=== PATIENT | male | born 1955 | race Caucasian/White ===

== ENCOUNTER 2018-12-31 02:39 | Inpatient (IN) | payer OTHER ==
[~2018-12-31] VITALS: Ht 188 cm; Wt 72.6 kg
[2018-12-31 03:11] VITALS: Ht 188 cm; Wt 72.6 kg
--- NOTE | 2018-12-31 03:30 | NUR ---
PT. BIB AMBULANCE FOR DIFFICULITY URINATING AND CLOUDY URINE [id number]. ALSO REPORT HE HAS HAD 6 EPISODES OF BROWN EMESIS TODAY. PER MEDICS BS WAS 550. PT. REPORTS HE HAS BEEN OUT OF INSULIN FOR 6MONTHS AND HAS NOT BEEN TO SEE HIS PCP. PT. AAOX4, TALKING AND RESPONDING APPROPRIATLEY, BREATHING E/U. PLACED ON FULL BEN DAY ARTIST. DR. MALONEY AT [facility] FOR MSE.
[2018-12-31 04:12] LABS: BASOPHIL % 0 % (0-2); PLATELET COUNT 299 x10^3mcL (130-400)
[2018-12-31 04:24] LABS: BILIRUBIN TOTAL 0.37 mg/dL (0.20-1.00); CALCIUM 9.3 mg/dL (8.5-10.1); CARBON DIOXIDE 27.8 mmol/L (21-32); CREATININE SERUM 2.2 mg/dL (0.7-1.3); MAGNESIUM 2.8 mg/dL (1.8-2.4); PHOSPHOROUS 4.7 mg/dL (2.5-4.9); POTASSIUM SERUM 4.4 mmol/L (3.5-5.1); TOTAL PROTEIN, SERUM 8.2 g/dL (6.4-8.2)
[2018-12-31 04:31] LABS: ALBUMIN 2.7 g/dL (3.4-5.0)
--- NOTE | 2018-12-31 04:45 | NUR ---
PT. LAYING ON GURNEY IN POSITION OF COMFORT. AAOX4, TALKING AND RESPONDING APPROPRIATELY, BREATHING E/U. REPORTS PAIN / TO BILATERL LOWER EXTRIMITIES. CALL LIGHT IN REACH, WILL CONTINUE TO MONITOR.
--- NOTE | 2018-12-31 05:00 | NUR ---
PT. DAUGHTER AT BEDSIDE STATES PATIENT HAS NOT TAKEN HIS INSULIN IN 6MONTHS BECAUSE HE DOES NOT WANT TO. REPORTS HE LIVE WITH HER AND REFUSES TO COMPLY WITH HIS MEDS.
--- NOTE | 2018-12-31 06:55 | NUR ---
PT. LAYING ON GURNEY IN POSITION OF COMFORT. REPORTS PAIN IN LEGS IS NOW A 3/10 AFTER MORPHINE. AAOX4, TALKING AND RESPONDING APPROPRIATLEY, BREATHING E/U. NAD CALL LIGHT IN REACH.
--- NOTE | 2018-12-31 07:11 | NUR ---
RCVD REPORT FROM IRENE OKEEFE, AT BEDSIDE PT IS AAOX4, RESPS E/U, PT ON FULL CM. PT CALM AND COOPERATIVE.
--- NOTE | 2018-12-31 07:12 | NUR ---
REPORT GIVEN TO MARNIE BONILLA TO ASSUME CARE OF PATIENT, ALL QUESTIONS ANSWERED.
[2018-12-31 07:32] LABS: UA SPECIFIC GRAVITY >=1.030 (1.005-1.035); microscopic required? YES; urine erythrocyte 3+ (NEGATIVE)
--- NOTE | 2018-12-31 07:49 | NUR ---
PROVIDED IRENE CASTLE FROM TELE UNIT REPORT TO ASSUME CARE.
[2018-12-31 09:28] VITALS: BP 180/95
--- NOTE | 2018-12-31 10:00 | NUR ---
RECIEVED PT FROM ED. PT IS AWAKE, ALERT, AND ORIENTED. HAS NO COMPLAINT OF PAIN, SOB, OR DIZZINESS. RESPONDS WELL TO QUESTION AND ANSWER. CLEAR RAMON LUNG FIELD, SYMMETRICAL CHEST EXPANSION AND UNLABORED. ACTIVE BOWEL SOUNDS NOTED. NON DISTENDED ABDOMEN. SKIN INTACT. GENERALIZED WEAKNESS. PRN PAIN MED TO BE GIVEN FOR COMPLAINT OF PAIN ON THE BLE. PT HAS A HISTORY OF LBKA 3 YEARS AGO DUE TO COMPLICATIONS FROM DIABETES PT STATED. DR. DIMAS TO BE MADE AWARE OF PT'S BP OF 180/95. WILL CONTINUE TO MONITOR
[2018-12-31 10:25] VITALS: BP 144/81
--- NOTE | 2018-12-31 10:54 | NUR ---
HYDRALAZINE NOT GIVEN. RECHECK PT'S BP SHOWED 144/81. WILL CONTINUE TO MONITOR
[2018-12-31 12:15] VITALS: BP 148/75
--- NOTE | 2018-12-31 13:00 | NUR ---
PT'S ACCUCHECK SHOWED 374. REG INSULIN GIVEN COVERAGE. AND LEVEMIR INSULIN GIVEN. WILL CONTINUE TO MONITOR
--- NOTE | 2018-12-31 14:05 | NUR ---
PT ON BED, ASLEEP. WILL CONTINUE TO MONITOR
[2018-12-31 16:35] VITALS: BP 161/87
[2018-12-31 16:41] LABS: AMPHETAMINE QUAL UR NONE DETECTED (See below)
--- NOTE | 2018-12-31 17:00 | NUR ---
PT'S ACCUCHECK SHOWED 337. 12 UNITS OF REGULAR INSULIN GIVEN COVERAGE. WILL CONTINUE TO MONITOR
--- NOTE | 2018-12-31 18:09 | NUR ---
PRN PAIN MED GIVEN NEEDED. WILL CONTINUE TO MONITOR
--- NOTE | 2018-12-31 19:10 | NUR ---
REC'D PT FROM DAY NURSE. PT RESTING IN BED. AAOX4, SPEECH CLEAR, FOLLOWS COMMANDS. TELE 12. DENIES CP, DIZZINESS, OR PALPITATIONS. NO EDEMA NOTED. DENIES RESP DISTRESS OR SOB. BREATHING EVEN/UNLABORED ON RA. ABD SOFT/ROUND. DENIES ABD PAIN, TENDERNESS, OR N/V. GALLAGHER IN PLACE DRAINING YELLOW URINE TO GRAVITY. GEN WEAKNESS WITH L BKA. USES WC. REPOSITIONS FREQUENTLY IN BED. PT REPORTS PAIN TO BLE BUT RECEIVED MORPHINE FROM DAY NURSE. SKIN INTACT. IV TO RFA PATENT AND INFUSING, SITE WNL. CALL LIGHT WITHIN REACH, BED AT LOWEST POSITION. WILL CONTINUE TO MONITOR.
--- NOTE | 2018-12-31 20:55 | NUR ---
DR. CAMACHO MADE AWARE UA SHOWED SOME YEAST.
[2018-12-31 21:09] VITALS: BP 155/91
--- NOTE | 2019-01-01 01:56 | NUR ---
PT RESTING IN BED WITH EYES CLOSED. APPEARS TO BE SLEEPING. LAYING ON L SIDE. NO SIGNS OF DISTRESS NOTED. BREATHING EVEN/UNLABORED ON RA. CALL LIGHT WITHIN REACH, BED AT LOWEST POSITION. WILL CONTINUE TO MONITOR.
--- NOTE | 2019-01-01 04:56 | NUR ---
SPOKE TO DR. CAMACHO. MADE AWARE OF ELEVATED BP WITH HX HTN BUT PT DOES NOT TAKE MEDS. RESIDENT ALSO MADE AWARE OF ELEVATED BUN/CR, COMPLAINTS OF BLE PAIN (GABAPENTIN?), SMALL L PLEURAL EFFUSION FROM CXR WITH IVF INFUSING @ 150 ML/HR D/T DMOOC (CHECK BNP?), WELL URINE IN BLOOD (US RENAL?). STATED WILL WAIT FOR AM LABS FIRST BUT WILL ORDER BP MED.
[2019-01-01 06:01] VITALS: BP 160/81
[2019-01-01 06:15] LABS: BASOPHIL % 0.3 % (0-2); PLATELET COUNT 284 x10^3mcL (130-400); RED CELL DISTRIBUTION WIDTH 12.8 % (11.5-14.5)
[2019-01-01 06:25] LABS: CALCIUM 8.2 mg/dL (8.5-10.1); CARBON DIOXIDE 26.4 mmol/L (21-32); CHLORIDE SERUM 115 mmol/L (98-107); CREATININE SERUM 1.2 mg/dL (0.7-1.3); GFR1 > 60 mL/min; GLUCOSE SERUM 75 mg/dL (74-106); MAGNESIUM 2.4 mg/dL (1.8-2.4); PHOSPHOROUS 2.8 mg/dL (2.5-4.9); POTASSIUM SERUM 3.9 mmol/L (3.5-5.1); SODIUM SERUM 150 mmol/L (136-145)
--- NOTE | 2019-01-01 06:30 | NUR ---
PT AWAKE AND C/O N/V. SMALL "THICK WHITE" EMESIS PER PT. ALSO C/O BLE PAIN 06/10. WILL GIVE MORPHINE. BREATHING EVEN/UNLABORED ON RA. BS 80 THIS AM. CALL LIGHT WITHIN REACH, BED AT LOWEST POSITION. WILL ENDORSE TO DAY NURSE.
--- NOTE | 2019-01-01 08:28 | NUR ---
AAO TIMES 4. TELE # 12 SR. LUNGS CTA. NO SOB. O2 SAT ON RA 100%. BS'S ACTIVE TIMES 4. MARTINEZ. LEFT BKA WITH STUMP SKIN CDI. SKIN CDI. IV SITE CDI. NO C/O PAIN AT THIS TIME. COOPERATIVE.
[2019-01-01 09:32] VITALS: BP 181/98
--- NOTE | 2019-01-01 09:44 | NUR ---
C/O NAUSEA. GAVE ZOFRAN 4 MG IVP AT 0856. DENIES NAUSEA AT THIS TIME.
[2019-01-01 13:11] VITALS: BP 159/92
--- NOTE | 2019-01-01 16:18 | NUR ---
DR DIMAS AWARE THAT HE HAD A 6 SECOND RUN OF TRIGEMINY, HE SAYS HE IS ORDERING AN EKG.
[2019-01-01 18:13] VITALS: BP 153/86
--- NOTE | 2019-01-01 18:18 | NUR ---
AAO TIMES 4. TELE # 12 SR. SLEPT MOST OF DAY. COOPERATIVE. C/O LEFT BKA PAIN AND REQUESTED MORPHINE, IT WAS GIVEN AT 1722. AT THIS TIME HE DENIES DISCOMFORT. IV SITE CDI. NO SOB.
--- NOTE | 2019-01-01 19:10 | NUR ---
REC'D PT FROM DAY NURSE. PT RESTING IN BED. AAOX4, SPEECH CLEAR, FOLLOWS COMMANDS. TELE 12. DENIES CP, DIZZINESS, OR PALPITATIONS. NO EDEMA NOTED. DENIES RESP DISTRESS OR SOB. BREATHING EVEN/UNLABORED ON RA. NO COUGH NOTED. ABD SOFT/ROUND. DENIES ABD PAIN, TENDERNESS, OR N/V. GALLAGHER IN PLACE DRAINING YELLOW URINE TO GRAVITY. GEN WEAKNESS. L BKA. C/O OF SOME BLE PAIN BUT TOLERABLE AT THIS TIME. USES WC AT HOME. SKIN INTACT. IV TO RFA PATENT AND INFUSING, SITE WNL. CALL LIGHT WITHIN REACH, BED AT LOWEST POSITION. WILL CONTINUE TO MONITOR.
--- NOTE | 2019-01-01 20:00 | NUR ---
POSSIBLE GALLAGHER D/C TOMORROW. BLADDER TRAINING PROCESS EXPLAINED TO PT, VERBALIZED UNDERSTANDING. GALLAGHER CLAMPED.
[2019-01-01 21:39] VITALS: BP 132/76
--- NOTE | 2019-01-01 21:57 | NUR ---
PT C/O NAUSEA AND BLADDER FULLNESS TO THE POINT OF "DISCOMFORT." ZOFRAN GIVEN PER ORDER. GALLAGHER UNCLAMPED. WILL CONTINUE TO MONITOR.
--- NOTE | 2019-01-01 22:30 | NUR ---
GALLAGHER RECLAMPED FOR BLADDER TRAINING. PT APPEARS TO BE SLEEPING. BREATHING EVEN/UNLABORED ON RA. CALL LIGHT WITHIN REACH, BED AT LOWEST POSITION. WILL CONTINUE TO MONITOR.
--- NOTE | 2019-01-02 00:30 | NUR ---
PT AWAKE AND RESTING IN BED. REPORTS HIS BLADDER FEELS FULL. STATES HE IS "UNCOMFORTABLE." GALLAGHER UNCLAMED AND DRAINING TO GRAVITY.
--- NOTE | 2019-01-02 02:16 | NUR ---
PT RESTING IN BED WITH EYES CLOSED. NO SIGNS OF DISTRESS NOTED. BREATHING EVEN/UNLABORED ON RA. CALL LIGHT WITHIN REACH, BED AT LOWEST POSITION. WILL CONITNUE TO MONITOR.
--- NOTE | 2019-01-02 02:48 | NUR ---
PT C/O BLE PAIN. NORCO GIVEN PER ORDER. WILL MONITOR FOR RELIEF.
--- NOTE | 2019-01-02 04:05 | NUR ---
PT AWAKE AND ON HIS CELL PHONE. REPORTS BLADDER FULLNESS. GALLAGHER UNCLAMPED FOR BLADDER TRAINING.
[2019-01-02 06:13] VITALS: BP 147/86
[2019-01-02 06:30] LABS: BASOPHIL % 0.2 % (0-2); PLATELET COUNT 261 x10^3mcL (130-400); RED CELL DISTRIBUTION WIDTH 13.1 % (11.5-14.5)
--- NOTE | 2019-01-02 06:30 | NUR ---
PT RESTING IN BED. DR. BROWNE AT THE BEDSIDE. BREATHING EVEN/UNLABORED ON RA. NO COMPLAINTS AT THIS TIME. GALLAGHER OPENED AND DRAINED TO GRAVITY. PERICARE PROVIDED. GALLAGHER D/C'D, TOLERATED WELL. CALL LIGHT WITHIN REACH, BED AT LOWEST POSITION. WILL ENDORSE TO DAY NURSE.
[2019-01-02 06:45] LABS: CALCIUM 8.2 mg/dL (8.5-10.1); CARBON DIOXIDE 27.7 mmol/L (21-32); CHLORIDE SERUM 114 mmol/L (98-107); CREATININE SERUM 1.1 mg/dL (0.7-1.3); GFR1 > 60 mL/min; GLUCOSE SERUM 137 mg/dL (74-106); MAGNESIUM 2.1 mg/dL (1.8-2.4); PHOSPHOROUS 3.2 mg/dL (2.5-4.9); POTASSIUM SERUM 4.4 mmol/L (3.5-5.1); SODIUM SERUM 148 mmol/L (136-145)
--- NOTE | 2019-01-02 07:30 | NUR ---
RECEIVED PT IN BED A/A/OX4 DENIES BERNARDO. RESP EVEN AND UNLABORED WITH DIMINISHED BS BILAT. DENIES ANY SOB/CP/PRESSURE AT THIS TIME. NSR ON TELE HR IN 90S. ABD SOFT, NONTENDER WITH ACTIVE BS X4 DENIES ANY N/V. PT HAD F/C D/C'D THIS AM AT 0630, AWAITING FIRST VOID. GEN WEAKNESS WITH HX OF LBKA, USES WC AT HOME. CALL LIGHT IN REACH NEEDS ATTENDED TO.
--- NOTE | 2019-01-02 08:59 | NUR ---
PT C/O NAUSEA MEDICATED WITH ZOFRAN, WILL ATTEMP PO MEDS AT A LATER TIME.
--- NOTE | 2019-01-02 09:34 | NUR ---
AM MEDS GIVEN AT THIS TIME, AND TOLERATED WELL.
[2019-01-02 09:35] VITALS: BP 155/87
[2019-01-02 12:40] VITALS: BP 147/84
--- NOTE | 2019-01-02 14:35 | NUR ---
PT HAD A SMALL VOID OF ABOUT 250ML AT THIS TIME. DR. TORRES MADE AWARE. NO FURTHER ORDERS AT THIS TIME.
[2019-01-02 16:45] VITALS: BP 145/85
--- NOTE | 2019-01-02 18:33 | NUR ---
P.T. NOTES RECEIVED P.T. EVAL ORDER; Pt DECLINED W/ P.T., STATES HE JUST GOT COMFORTABLE FROM THE PAIN, WAS GIVEN MORPHINE & WOULD LIKE TO SLEEP, EXPLAINED RISKS OF BEDBOUND, Pt STILL DECLINED, APPRECIATIVE; EDUC ON USE OF CALL LT FOR NURSE ASST, BED ALARM ON, CALL BARTH, PHONE, TABLE IN REACH; FOLLOW UP TOMORROW IF ABLE.
--- NOTE | 2019-01-02 20:00 | NUR ---
RECEIVED PT IN BED, ALERT AND ORIENTED. ABLE TO VERBALIZE NEEDS. DENIES HEADACHE/DIZZINESS. RESP. EVEN AND UNLABORED. ON ROOM AIR, NO ACUTE DISTRESS NOTED. SR/ST ON THE MONITOR, DENIES CHEST PAIN OR ANY DISCOMFORT AT THIS TIME. AFEBRILE AND VITAL SIGNS STABLE. VOIDING FREELY VIA URINAL. IVF, NS AT 40ML/HR, INTACT AND INFUSING VIA RFA, SITE CLEAR. WITH LT BKA, ABLE TO REPOSITION SELF IN BED. ASSISTED WITH HS CARE. CALL LIGHT WITHIN REACH. WILL CONTINUE TO MONITOR.
[2019-01-02 20:26] VITALS: BP 142/81
--- NOTE | 2019-01-03 02:03 | NUR ---
EYES CLOSED, APPEARS ASLEEP, EASILY AROUSABLE. RESP. EVEN AND UNLABORED. NO ACUTE DISTRESS NOTED. WILL CONTINUE TO MONITOR.
--- NOTE | 2019-01-03 02:36 | NUR ---
COMPLAINED OF RT LEG PAIN, 04/10, MEDICATED WITH NORCO PO ORDERED, . WILL CONTINUE TO MONITOR.
[2019-01-03 05:11] VITALS: BP 139/80
--- NOTE | 2019-01-03 06:22 | NUR ---
SLEPT WELL. NO COMPLAINTS NOTED AT THIS TIME. RESP. EVEN AND UNLABORED, NO ACUTE DISTRESS NOTED. AFEBRILE AND VITAL SIGNS STABLE. IVF INTACT AND INFUSING WELL, SITE CLEAR. DUE MEDS GIVEN ORDERED, ERVIN. WELL. VOIDING FREELY. DENIES PAIN OR ANY DISCOMFORT AT THIS TIME. NO S/S OF HYPER/HYPOGLYCEMIA NOTED. WILL ENDORSE TO INCOMING NURSE.
--- NOTE | 2019-01-03 07:30 | NUR ---
RECEIVED PT IN BED A/A/OX4 DENIES BERNARDO. RESP EVEN AND UNLABORED WITH CLEAR BS BILAT. DENIES ANY SOB/CP/PRESSURE AT THIS TIME. NSR WITH BBB ON TELE. NO EDEMA NOTED WITH IVF TO RFA. ABD SOFT, NONTENDER WITH ACTIVE BS X4. REPORTS MILD CONSTIPATION WITH LBM 3/1 DULCOLAX PO GIVEN LAST NIGHT. VOIDING FREELY USES URINAL. HX LT BKA, ABLE TO REPOSITION SELF IN BED. TO WORK WITH PT. CALL LIGHT IN REACH NEEDS ATTENDED TO.
[2019-01-03 08:03] VITALS: BP 149/86
--- NOTE | 2019-01-03 08:30 | NUR ---
AM MEDS TO BE GIVEN BY MT. GEIGER STUDENT UNDER SUPERVISION OF THEIR INSTRUCTOR WITH PT VERBAL APPROVAL.
--- NOTE | 2019-01-03 11:10 | NUR ---
LEADITE WORKER LESLIE CALLED TO DISCUSS ATB TX. PT'S SENSATIVITY REPORT ON [facility] SHOWS INTERMIDIATE RESPONSE TO CURRENT ATB ROCEPHIN. LEADITE WORKER STATED SHE WILL REVIEW MIGUELINA REPORT AND MAKE APPROPRIATE CHANGES. AWAITING NEW ORDERS.
--- NOTE | 2019-01-03 11:10 | NUR ---
NO MUTUC CALLED TO DISCUSS ATB TX. PT'S SENSATIVITY REPORT ON U[facility] SHOWS INTERMIDIATE RESPONSE TO CURRENT ATB ROCEPHIN. BASEBALL WINDER STATED SHE WILL SPEAK EVALUATE MIGUELINA REPORT.
[2019-01-03 12:13] VITALS: BP 140/82
--- NOTE | 2019-01-03 13:20 | NUR ---
NOTED REDNESS ABOVE IV SITE, NO LEAKING, PAIN OR SWELLING NOTED. NEW IV INSERTED TO RW 22G. D/C OLD IV. PT TOLERATED WELL.
--- NOTE | 2019-01-03 14:40 | NUR ---
PT BACK FROM [employer] COMPLET[facility].
--- NOTE | 2019-01-03 15:00 | NUR ---
PT C/O PAIN TO RT LEG AT 8, MEDICATED WITH MORPHINE 2MG IVP. PT C/O CONSTIPATION. PUBLICATION EDITOR CALLED AND OBTAINED ORDER FOR ENEMA. MTLINA STUDENT WITH INSTRUCTOR TO ADMINISTER ENEMA. PT MADE AWARE AND AGREABLE. CONT TO MONITOR.
--- NOTE | 2019-01-03 15:21 | NUR ---
PATIENT REFUSED PHYSICAL THERAPY EVAL AT THIS TIME, WILL ATTEMPT AGAIN TOMORROW
[2019-01-03 16:21] VITALS: BP 148/63
--- NOTE | 2019-01-03 18:01 | NUR ---
PT RESTING COMFORTABLY AT THIS TIME. CONT WITH IVF TO RW. PT HAD ENEMA WITH GOOD RELIEF 2BM. DENIES PAIN/DISCOMFORT. CALL LIGHT IN REACH NEEDS ATTENDED TO.
--- NOTE | 2019-01-03 20:05 | NUR ---
PT CURRENTLY RESTING IN BED, NO ACUTE DISTRESS. A/O X4. TELE #12 SHOWING SINUS RHYTHM, DENIES CHEST PAIN. PULSES PALPABLE IN BUE AND RLE, NO EDEMA NOTED. LUNG SOUNDS DIMINISHED BILATERALLY, DENIES SOB. BOWEL SOUNDS ACTIVE, LAST BM 01/03/19. VOIDING WELL. GENERALIZED WEAKNESS, ABLE TO REPOSITION SELF. LEFT BKA NOTED. SKIN INTACT. C/O CONSTANT RLE PAIN 8/10, MEDICATED PER EMAR. IV PATENT AND INTACT. BED IN LOWEST POSITION, SIDE RAILS UP X2, CALL LIGHT WITHIN REACH. WILL CONTINUE TO MONITOR.
[2019-01-03 21:46] VITALS: BP 129/76
--- NOTE | 2019-01-04 01:02 | NUR ---
PT CURRENTLY RESTING IN BED, NO ACUTE DISTRESS. WILL CONTINUE TO MONITOR.
[2019-01-04 06:05] VITALS: BP 133/77
--- NOTE | 2019-01-04 06:08 | NUR ---
PT SLEPT PERIODICALLY THROUGHOUT NIGHT, NO ACUTE DISTRESS. ALL NEEDS MET AND ATTENDED TO. NO SIGNIFICANT CHANGES. IV PATENT AND INTACT. MEDICATED PAIN PER EMAR. BED IN LOWEST POSITION, SIDE RAILS UP X2, CALL LIGHT WITHIN REACH. WILL ENDORSE CARE TO ONCOMING NURSE.
[2019-01-04 08:00] VITALS: BP 127/70
--- NOTE | 2019-01-04 08:04 | NUR ---
AAO TIMES 4. TELE # 12 SR. LUNGS CTA, NO SOB. O2 SAT ON RA 96%. BS'S ACTIVE TIMES 4. MARTINEZ WITH LEFT BKA, STUMP CDI. IV SITE CDI. PERIPHERAL PULSES PALPABLE, LEFT BKA. C/O A SMALL AMOUNT OF PAIN BLE. NO SOB.
[2019-01-04 09:10] LABS: PLATELET COUNT 256 x10^3mcL (130-400); RED CELL DISTRIBUTION WIDTH 13.1 % (11.5-14.5); SEGMENTED NEUTROPHILS 74.9 % (37-75)
[2019-01-04 09:11] LABS: ATYPICAL LYMPH 0 %; BAND NEUTROPHIL 0 % (0-10); BASOPHIL 0.2 % (0-2); MONOCYTE 8.1 % (0-7)
[2019-01-04 09:12] LABS: PLATELET MORPHOLOGY N; rbc morphology (normal/abnorm) NORMAL (NORMAL)
[2019-01-04] MEDS ORDERED: LEVAQUIN750 MG PO (10:15)
[2019-01-04] MEDS ORDERED: METFORMIN500 M1 PO (10:19)
[2019-01-04 10:41] VITALS: BP 127/70
[2019-01-04 12:00] VITALS: BP 136/78
--- NOTE | 2019-01-04 13:25 | NUR ---
DC'D SALINE LOCK, ANGIO INTACT. DC'D TELEMETRY AND RETURNED TO TELE ROOM. GAVE PT DISCHARGE INSTRUCTIONS AND PRESCRIPTION. HE VERBALIZED "I UNDERSTAND" TO ALL INSTRUCTIONS.
--- NOTE | 2019-01-04 14:47 | NUR ---
PATIENT REFUSED PHYSICAL THERAPY EVAL, D/C EVAL SECONDARY TO NON COMPLIANCE
== END 2019-01-04 14:59 | disposition home or self-care (01) | DRG 871 ==
LOC: ED 02:39 → DU 05:44
PROVIDERS: Emergency Medicine; Internal Medicine; ADMIT General Practice
DX: A41.9 Sepsis, unspecified organism (principal); N17.0 Acute kidney failure with tubular necrosis; E43 Unspecified severe protein-calorie malnutrition; J18.9 Pneumonia, unspecified organism; N39.0 Urinary tract infection, site not specified; E87.1 Hypo-osmolality and hyponatremia; D68.69 Other thrombophilia; Z68.1 Body mass index [BMI] 19.9 or less, adult; B96.1 Klebsiella pneumoniae [K. pneumoniae] as the cause of diseases classified elsewhere; E11.65 Type 2 diabetes mellitus with hyperglycemia; E86.0 Dehydration; E83.41 Hypermagnesemia; Z89.432 Acquired absence of left foot; Z86.73 Personal history of transient ischemic attack (TIA), and cerebral infarction without residual deficits; Z91.14 Patient's other noncompliance with medication regimen
CPT/HCPCS: 36600; 82962; J0360; J0696; J1815; J2185; J2270; J2405; J7030; Q0092